=== PATIENT | male | born 1955 | race Caucasian/White ===

== ENCOUNTER 2020-07-04 16:37 | Emergency (ER) | payer OTHER ==
[~2020-07-04] VITALS: Ht 175.3 cm; Wt 129.3 kg
== END 2020-07-04 21:03 | disposition home or self-care (01) ==
LOC: ER 16:37
DX: Z00.00 Encounter for general adult medical examination without abnormal findings (principal); R69 Illness, unspecified; Z59.0 Homelessness
CPT/HCPCS: 99282

== ENCOUNTER 2020-07-05 12:48 | Emergency (ER) | payer OTHER ==
[~2020-07-05] VITALS: Ht 175.3 cm; Wt 111.6 kg
== END 2020-07-05 15:59 | disposition home or self-care (01) ==
LOC: ER 12:48
DX: M79.10 Myalgia, unspecified site (principal); G89.29 Other chronic pain
CPT/HCPCS: 96372; 99282-25; J1885

== ENCOUNTER 2020-07-09 08:12 | Observation (INO) | payer OTHER ==
[~2020-07-09] VITALS: Ht 175.3 cm; Wt 113.4 kg
[2020-07-09 09:11] LABS: BASOPHILS ABSOLUTE AUTO 0.04 K/mm3 (0.00-0.23); BASOPHILS PERCENT AUTO 1 % (0-2); EOSINOPHILS ABSOLUTE AUTO 0.12 K/mm3 (0.00-0.68); EOSINOPHILS PERCENT AUTO 2 % (0-6); Hematocrit 40.1 % (37.0-53.0); Hemoglobin 12.9 g/dL (13.5-17.5); IMMATURE GRAN ABSOLUTE AUTO 0.06 K/mm3 (0.00-0.10); IMMATURE GRAN PERCENT AUTO 1 % (0-1); LYMPHOCYTES ABSOLUTE AUTO 1.03 K/mm3 (0.84-5.20); LYMPHOCYTES PERCENT AUTO 17 % (21-46); MONOCYTES ABSOLUTE AUTO 0.85 K/mm3 (0.16-1.47); MONOCYTES PERCENT AUTO 14 % (4-13); Mean Corpuscular HGB 30.6 pg (26.0-34.0); Mean Corpuscular HGB Conc 32.2 g/dL (31.5-36.5); Mean Corpuscular Volume 95 fL (80-100); Mean Platelet Volume 10.6 fL (9.1-12.4); NEUTROPHILS ABSOLUTE AUTO 3.95 K/mm3 (1.96-9.15); NEUTROPHILS PERCENT AUTO 65 % (41-73); Platelet Count 194 K/mm3 (150-400); RDW Coefficient Variation 12.5 % (11.7-14.2); RDW Standard Deviation 42.9 fL (35.1-46.3); Red Blood Cell Count 4.21 M/mm3 (4.30-5.90); White Blood Cell Count 6.05 K/mm3 (4.00-11.30)
[2020-07-09 09:36] LABS: Alanine Aminotransfer (ALT/SGP 18 U/L (12-78); Albumin, Blood 3.2 g/dL (3.4-5.0); Albumin/Globulin Ratio 0.8 (0.8-1.8); Alk Phos 98 U/L (50-136); Anion Gap 5 mmol/L (6-16); Aspartate Aminotrans (AST/SGOT 11 U/L (12-37); Bilirubin, Total 0.5 mg/dL (0.1-1.0); Blood Urea Nitrogen 35 mg/dL (8-24); Bun/Creatinine Ratio 35.6 (12.0-20.0); CO2, Blood 29 mmol/L (21-32); Calcium, Blood 9.2 mg/dL (8.5-10.1); Chloride, Blood 109 mmol/L (98-108); Creatinine, Blood 0.98 mg/dL (0.60-1.20); Ethanol (Alcohol), Blood, Med <3 mg/dL; Globulin, Blood 3.8 g/dL (2.2-4.0); Glomerular Filtration Rate >60 (60-); Glucose, Blood 204 mg/dL (70-99); Potassium, Blood 4.7 mmol/L (3.5-5.5); Sodium, Blood 143 mmol/L (136-145); Troponin I <0.015 ng/mL (0.000-0.040)
[2020-07-09] MEDS ORDERED: AMOCLA875 PO (10:41)
[2020-07-09] MEDS ORDERED: ATOR80 PO (10:41)
[2020-07-09] MEDS ORDERED: CIPR750 PO (10:41)
[2020-07-09] MEDS ORDERED: Aspir 8181 MG PO (10:41)
[2020-07-09] MEDS ORDERED: CYAN1000I IM (10:42)
[2020-07-09] MEDS ORDERED: FURO20 PO (10:42)
[2020-07-09] MEDS ORDERED: LOSA50 PO (10:43)
[2020-07-09] MEDS ORDERED: BASAGLAR K100 UNIT/1 SC (10:43)
[2020-07-09] MEDS ORDERED: METO25ER PO (10:43)
[2020-07-09] MEDS ORDERED: NOVOLOG100 UNIT/3 (10:43)
[2020-07-09] MEDS ORDERED: METF500 PO (10:44)
[2020-07-09] MEDS ORDERED: TAMS.4ER PO (10:44)
[2020-07-09] MEDS ORDERED: PREG150 PO (10:44)
[2020-07-09] MEDS ORDERED: MULTI-VITAMIN1 EAC2 PO (10:44)
[2020-07-09] MEDS ORDERED: PYRI100 PO (10:45)
[2020-07-09] MEDS ORDERED: TRAZ50 PO (10:45)
[2020-07-09] MEDS ORDERED: OLAN5 PO (10:46)
[2020-07-09 17:57] LABS: U Amphetamine Screen Not Detected; U Barbituate Screen Not Detected; U Benzodiazapine Screen Not Detected; U Buprenorphine Screen Not Detected; U Cannabinoids Screen Not Detected; U Cocaine Screen Not Detected; U Methadone Screen Not Detected; U Methamphetamine Screen Not Detected; U Opiates Screen Not Detected; U Oxycodone Screen Not Detected; U Phencyclidine Screen Not Detected; U Propoxyphene Screen Not Detected
[2020-07-09 19:31] LABS: Influenza A, PCR Negative (NEGATIVE); Influenza B, PCR Negative (NEGATIVE); Resp Syncytial Virus, PCR Negative (NEGATIVE); SARS-Cov-2 (COVID-19) PCR, MMC Negative (NEGATIVE)
--- NOTE | 2020-07-09 20:16 | NUR ---
SHIFT SUMMARY- PT ALERT AND ORIENTED X4. NO S&S OF DISTRESS NOTED UPON ARRIVAL. PT STATED HE WAS HUNGRY AND BEGAN SNACKING. PT HAS DONE NOTHING BUT EAT SINCE ARRIVAL. SPOKE TO THE PT AND EXPLAINED THERE IS A LIMIT TO THE NUMBER OF SNACKS THAT CAN BE PROVDED AND HE HAS HAD ALOT. PT WAS UNDERSTANDING AND STATED E PLANS TO GO TO SLEEP AFTER HE FINISHED THE SUGAR FREE JELLO HE HAS NOW. PASSED ON TO CALCULATION REVIEWER IN REPORT. PT ON TELE AT THIS TIME. CALLED CONSULT TO FRONT MAKER LOCKSTITCH, PLAN IS FOR THE PT TO BE MONITORED OVERNIGHT FOR ANY CARDIAC EVENTS THAT MAY EXPLAIN HIS SYNCOPAL EPISODE HE HAD AN ABNORMAL EKG UPON ARRIVAL. PASSED ON TO NIGHT PRACHI KAPLAN IN BEDSIDE REPORT.
--- NOTE | 2020-07-09 22:50 | NUR ---
PATIENT HAVING INCREASED AGITATION. INAPROPRIATE YELLING. REFUSING ASSISTANCE. REPORTING HE DOES NOT WANT TO STAY TO MORNING TO SEE DOCTOR. CONFUSED.
--- NOTE | 2020-07-09 23:01 | NUR ---
PATIENT PULLED TELEMETRY LEADS OFF. REFUSING TO HAVE LEADS PUT BACK ON WITH INCREASED AGITATION. PUMP SERVICE SUPERVISOR NOTIFIED AND REPORTED LAST READING WAS NSR 66.
--- NOTE | 2020-07-09 23:30 | NUR ---
HOSPITALIST RALPH SCOTT ORDERED ZYPREXA 10 MG X ONE FOR AGITATION. REPORTED PATIENT HAS A RIGHT TO REFUSE TELEMETRY LEAD PLACEMENT. TELEMETRY ORDER STAYS CURRENT. ON SI PRECAUTIONS.
--- NOTE | 2020-07-10 02:04 | NUR ---
PATIENT REPORTED TO BE AGITATED BY PRODUCTION MACHINIST AND WANTING TO LEAVE AMA. PATIENT WALKED OUT INTO SANDOVAL, ON CAMERA, AND BROUGHT BACK INTO ROOM CONFUSED. PATIENT REMINDED OF INCLEMENT WEATHER OUTSIDE BY ANOTHER RN AND NEED TO SEE DR IN AM. PATIENT PROVIDED A SNACK AND RESTING IN CHAIR AT THIS TIME. RN REPORTS HE REFUSED HIS ZYPREXA 10 MG FOR THE THIRD TIME.
--- NOTE | 2020-07-10 02:31 | NUR ---
PATIENT BACK INTO BED AT THIS TIME. CALL LIGHT IN REACH.
--- NOTE | 2020-07-10 04:27 | NUR ---
SHIFT SUMMARY PATIENT HAD INCREASED AGITATION T/O SHIFT. AXOX 3 WITH CONFUSION REFUSING ASSISTANCE TO BR. SBA PROVIDED. MODERATE SUICIDE PRECAUTION. PATIENT REPORTED HE WANTED TO LEAVE AMA MULTIPLE TIMES. PULLED TELEMETRY OFF AND REFUSED REPLACEMENT OF LEADS. HOSPITALIST RALPH SCOTT NOTIFIED AND REPORTED PATIENT CAN REFUSE BUT TELEMETRY ORDERS IN PLACE. PATIENT INITIALLY REFUSED TO DO HEALTH HX BEFORE AGREEING. HAD INCREASED AGITATION WHEN TOLD HIS CBG WAS 183 AND REPORTED HE WANTED TO TAKE HIS OWN CBG. PATIENT REMINDED HE WAS IN HOSPITAL. REPORTED GENERAL PAIN AND TYLENOL GIVEN PER EMAR. COVERING NURSE AND TOOL SALVAGE WORKER REPORTED PATIENT OUT OF ROOM AND WANTED TO LEAVE. THEY OFFERED FOOD AND PATIENT BACK IN ROOM AND RESTED IN CHAIR BEFORE RETURNING TO BED ON HIS OWN. REFUSED ZYPREXA 10 MG X ONE ORDERED BY HOSPITALIST RALPH SCOTT THREE DIFFERENT TIMES. VSS/AFEBRILE. DENIES SOB AND N/V. CALL LIGHT IN REACH. BED IN LOWEST POSITION. WILL CONTINUE TO MONITOR UNTIL DAY SHIFT NURSE ASSUMES CARE.
--- NOTE | 2020-07-10 07:55 | NUR ---
UPON MORNING ASSESSMENT, OR ATTEMPT TO ASSESS, NURSE FOUND PT VERY AGITATED. HE REFUSED VITALS AND CBG'S CHECKS BUT PLANNING INTERN WAS FINALLY ABLE TO CONVINCE HIM TO HAVE THEM DONE. HE IS COMPLAINING THAT SOMEONE STOLE HIS SHOES. THIS NURSE CALLED DOWN TO ER TO SEE IF THEY HAD THEM AND WAS TOLD HE CAME IN FROM [facility] NO SHOES ON. THIS INFOMATION WAS GIVEN TO THE PATIENT WHO BECAME MORE AGIATED AND DISTRUSTING. THIS NURSE ATTEMPTED TO CALM THE PATIENT TELLING HIM HIS SHOES WERE WAITING FOR HIM BACK AT THE [place]. PT AT THIS TIME IS REFUSING MORNING MEDS, INCLUDING INSULIN. HE DOESNT BELIEVE THE READING TELLING THIS NURSE ITS DIFFERENT WITH WHO EVER TAKES IT. THIS NURSE EXPLAINED THE TRUTH BEHIND THE READING. WILL ATTEMPT TO TRY TO DELIVER MEDS AND INSULIN WITH BREAKFAST WHEN PT IS MORE COMPLIANT AND LESS PARANOID.
[2020-07-10] MEDS ORDERED: AMOCLA875 PO (12:07)
--- NOTE | 2020-07-10 14:49 | NUR ---
PT [facility] ON HALTER MONITOR WHICH HE REFUSED. PT ALSO REFUSED HIS 1130 INSULIN. PT IS GETTING AGITATED AND RESTLESS WAITING FOR HIS RIDE WHICH [facility] IS TO SET UP. STAFF USING CALMING AND REASSURING TONES AND COMMENTS.
--- NOTE | 2020-07-10 15:55 | NUR ---
1550 PT DISCHARGED BACK TO [facility]. PT WAS AGIATED AND THREATENING TO GO AMA. TRANSPORT ARRIVED, PAPERS SIGNED AND PT COBRA TRANSFERED BACK TO [facility].
== END 2020-07-10 15:50 ==
LOC: ER 08:12 → MEDS 08:13
PROVIDERS: Emergency Medicine; Nurse Practitioner Acute Care; ADMIT Internal Medicine
DX: I45.3 Trifascicular block (principal); I10 Essential (primary) hypertension; R45.851 Suicidal ideations; N40.0 Benign prostatic hyperplasia without lower urinary tract symptoms; E66.01 Morbid (severe) obesity due to excess calories; E11.40 Type 2 diabetes mellitus with diabetic neuropathy, unspecified; Z91.14 Patient's other noncompliance with medication regimen; Z89.421 Acquired absence of other right toe(s); Z79.82 Long term (current) use of aspirin; Z79.4 Long term (current) use of insulin; Z79.899 Other long term (current) drug therapy; Z23 Encounter for immunization; Z20.822 Contact with and (suspected) exposure to COVID-19; Z68.36 Body mass index [BMI] 36.0-36.9, adult
CPT/HCPCS: 0241U; 36415; 71045; 80053; 82947; 83605; 83735; 83880; 84484; 85025; 93005; 93010; A9270; A9270-GY; G0480; J7030

== ENCOUNTER 2020-07-29 06:19 | Emergency (ER) | payer OTHER ==
[~2020-07-29] VITALS: Ht 175.3 cm; Wt 111.6 kg
[~2020-07-29 06:19] MED LIST: AMOCLA875 PO; ATOR80 PO; Aspir 8181 MG PO; BASAGLAR K100 UNIT/1 SC; CIPR750 PO; CYAN1000I IM; FURO20 PO; LOSA50 PO; METF500 PO; METO25ER PO; MULTI-VITAMIN1 EAC2 PO; NOVOLOG100 UNIT/3; OLAN5 PO; PREG150 PO; PYRI100 PO; TAMS.4ER PO; TRAZ50 PO
[2020-07-29 08:04] LABS: BASOPHILS ABSOLUTE AUTO 0.03 K/mm3 (0.00-0.23); BASOPHILS PERCENT AUTO 0 % (0-2); EOSINOPHILS ABSOLUTE AUTO 0.11 K/mm3 (0.00-0.68); EOSINOPHILS PERCENT AUTO 1 % (0-6); Hemoglobin 12.1 g/dL (13.5-17.5); IMMATURE GRAN ABSOLUTE AUTO 0.03 K/mm3 (0.00-0.10); IMMATURE GRAN PERCENT AUTO 0 % (0-1); LYMPHOCYTES ABSOLUTE AUTO 0.89 K/mm3 (0.84-5.20); LYMPHOCYTES PERCENT AUTO 11 % (21-46); MONOCYTES ABSOLUTE AUTO 0.75 K/mm3 (0.16-1.47); MONOCYTES PERCENT AUTO 9 % (4-13); Mean Corpuscular HGB 32.1 pg (26.0-34.0); Mean Corpuscular HGB Conc 33.6 g/dL (31.5-36.5); Mean Corpuscular Volume 96 fL (80-100); NEUTROPHILS PERCENT AUTO 77 % (41-73); Platelet Count 145 K/mm3 (150-400); RDW Coefficient Variation 12.6 % (11.7-14.2); RDW Standard Deviation 44.1 fL (35.1-46.3); Red Blood Cell Count 3.77 M/mm3 (4.30-5.90); White Blood Cell Count 8.01 K/mm3 (4.00-11.30)
[2020-07-29 08:27] LABS: Alanine Aminotransfer (ALT/SGP 31 U/L (12-78); Albumin, Blood 3.8 g/dL (3.4-5.0); Albumin/Globulin Ratio 1.1 (0.8-1.8); Alk Phos 82 U/L (50-136); Anion Gap 5 mmol/L (6-16); Aspartate Aminotrans (AST/SGOT 15 U/L (12-37); Bilirubin, Total 0.4 mg/dL (0.1-1.0); Blood Urea Nitrogen 36 mg/dL (8-24); Bun/Creatinine Ratio 39.7 (12.0-20.0); CO2, Blood 29 mmol/L (21-32); Calcium, Blood 9.2 mg/dL (8.5-10.1); Chloride, Blood 107 mmol/L (98-108); Creatinine, Blood 0.91 mg/dL (0.60-1.20); Globulin, Blood 3.4 g/dL (2.2-4.0); Glomerular Filtration Rate >60 (60-); Glucose, Blood 115 mg/dL (70-99); Potassium, Blood 4.6 mmol/L (3.5-5.5); Sodium, Blood 141 mmol/L (136-145); Total Protein, Blood 7.2 g/dL (6.4-8.2); Troponin I <0.015 ng/mL (0.000-0.040)
[2020-07-29 09:57] LABS: Source, Urine Voided
[2020-07-29 10:00] LABS: Bilirubin, Urine Neg (Neg); Blood, Urine Neg (Neg); Glucose Qualitative, Urine Neg (Neg); Ketones, Urine Neg (Neg); Leukocyte Esterase, Urine Neg (Neg); Nitrite, Urine Neg (Neg); Protein, Urine Neg (Neg); Specific Gravity, Urine 1.015 (1.003-1.022); Urobilinogen, Urine NORM (Normal)
[2020-07-29 10:18] LABS: Appearance, Urine Clear (Clear); Color, Urine Yellow (P-Yellow)
== END 2020-07-29 10:39 | disposition home or self-care (01) ==
LOC: ER 06:19
PROVIDERS: Emergency Medicine
DX: I95.9 Hypotension, unspecified (principal); I10 Essential (primary) hypertension; E11.40 Type 2 diabetes mellitus with diabetic neuropathy, unspecified; Z79.4 Long term (current) use of insulin; Z79.899 Other long term (current) drug therapy
CPT/HCPCS: 36415; 71045; 80053; 81003; 83880; 84443; 84484; 85025; 93005; 93010; 99284-25; J2405; J7030

== ENCOUNTER → 2021-07-06 | Outpatient (CLI) | payer OTHER ==
[2021-07-06 19:11] LABS: BASOPHILS ABSOLUTE AUTO 0.05 K/mm3 (0.00-0.23); BASOPHILS PERCENT AUTO 1 % (0-2); EOSINOPHILS ABSOLUTE AUTO 0.15 K/mm3 (0.00-0.68); EOSINOPHILS PERCENT AUTO 2 % (0-6); Hematocrit 38.1 % (37.0-53.0); Hemoglobin 12.9 g/dL (13.5-17.5); IMMATURE GRAN ABSOLUTE AUTO 0.05 K/mm3 (0.00-0.10); IMMATURE GRAN PERCENT AUTO 1 % (0-1); LYMPHOCYTES ABSOLUTE AUTO 2.13 K/mm3 (0.84-5.20); LYMPHOCYTES PERCENT AUTO 22 % (21-46); MONOCYTES ABSOLUTE AUTO 0.79 K/mm3 (0.16-1.47); MONOCYTES PERCENT AUTO 8 % (4-13); Mean Corpuscular HGB 31.1 pg (26.0-34.0); Mean Corpuscular HGB Conc 33.9 g/dL (31.5-36.5); Mean Corpuscular Volume 92 fL (80-100); Mean Platelet Volume 10.9 fL (9.1-12.4); NEUTROPHILS ABSOLUTE AUTO 6.42 K/mm3 (1.96-9.15); NEUTROPHILS PERCENT AUTO 67 % (41-73); Platelet Count 183 K/mm3 (150-400); RDW Standard Deviation 40.3 fL (35.1-46.3); Red Blood Cell Count 4.15 M/mm3 (4.30-5.90); White Blood Cell Count 9.59 K/mm3 (4.00-11.30)
[2021-07-06 19:35] LABS: Alanine Aminotransfer (ALT/SGP 45 U/L (12-78); Albumin, Blood 3.9 g/dL (3.4-5.0); Albumin/Globulin Ratio 1.1 (0.8-1.8); Anion Gap 4 mmol/L (6-16); Aspartate Aminotrans (AST/SGOT 27 U/L (12-37); Bilirubin, Total 0.6 mg/dL (0.1-1.0); Blood Urea Nitrogen 25 mg/dL (8-24); Bun/Creatinine Ratio 27.7 (12.0-20.0); CHOL/HDL RATIO 2.3; CO2, Blood 29 mmol/L (21-32); Chloride, Blood 105 mmol/L (98-108); Cholesterol 108 mg/dL (50-200); Globulin, Blood 3.5 g/dL (2.2-4.0); Glomerular Filtration Rate >60 (60-); Glucose, Blood 258 mg/dL (70-99); HDL Cholesterol 46 mg/dL (>39); LDL/HDL RATIO 0.9; Low Density Lipoprotein Chol 43 mg/dL (0-110); Potassium, Blood 4.1 mmol/L (3.5-5.5); Prostate Specific Antigen 0.349 ng/mL (0.000-4.000); Sodium, Blood 138 mmol/L (136-145); Total Protein, Blood 7.4 g/dL (6.4-8.2); Triglycerides 93 mg/dL (30-160); Very Low Density Lipoprot Chol 18 mg/dL (6-32)
[2021-07-06 19:41] LABS: Alk Phos 111 U/L (50-136)
== END | disposition home or self-care (01) ==
LOC: LAB SHORT 12:47
PROVIDERS: Family Medicine
DX: Z12.5 Encounter for screening for malignant neoplasm of prostate (principal); E78.2 Mixed hyperlipidemia; E11.9 Type 2 diabetes mellitus without complications; I10 Essential (primary) hypertension
CPT/HCPCS: 80053; 80061; 83036; 85025; G0103

== ENCOUNTER → 2021-10-26 | Outpatient (CLI) | payer MEDICARE, OTHER ==
[2021-10-26 18:33] LABS: Source, Urine Clean Catch
[2021-10-26 18:56] LABS: Appearance, Urine Clear (Clear); Bilirubin, Urine Neg (Neg); Blood, Urine Neg (Neg); Color, Urine Yellow (P-Yellow); Glucose Qualitative, Urine 3+ (Neg); Ketones, Urine Neg (Neg); Leukocyte Esterase, Urine Neg (Neg); Nitrite, Urine Neg (Neg); Protein, Urine Neg (Neg); Specific Gravity, Urine 1.015 (1.003-1.022); Urobilinogen, Urine NORM (Normal)
== END | disposition home or self-care (01) ==
LOC: LAB SHORT 18:30
PROVIDERS: Family Medicine
DX: N39.0 Urinary tract infection, site not specified (principal)
CPT/HCPCS: 81003

== ENCOUNTER 2022-06-10 13:57 | Inpatient (IN) | payer MEDICARE, OTHER ==
[~2022-06-10] VITALS: Ht 167.6 cm; Wt 90.7 kg
[~2022-06-10 13:57] MED LIST changes: +AMLO5 PO; +CELE100 PO; +DIVA125 PO; +FAMO20 PO; +GABA100 PO; +GABA300 PO; +HALO2 PO; +HYDCHL25 PO; +LEVSOD25 PO; +MELA3 PO; +PRAZ2 PO; +Prozac40 MG PO; +QUET200 PO; +QUET25 PO
[2022-06-10 16:09] LABS: BASOPHILS ABSOLUTE AUTO 0.04 K/mm3 (0.00-0.23); BASOPHILS PERCENT AUTO 0 % (0-2); EOSINOPHILS ABSOLUTE AUTO 0.05 K/mm3 (0.00-0.68); EOSINOPHILS PERCENT AUTO 0 % (0-6); Hematocrit 38.2 % (37.0-53.0); Hemoglobin 13.4 g/dL (13.5-17.5); IMMATURE GRAN ABSOLUTE AUTO 0.07 K/mm3 (0.00-0.10); IMMATURE GRAN PERCENT AUTO 1 % (0-1); LYMPHOCYTES ABSOLUTE AUTO 1.76 K/mm3 (0.84-5.20); LYMPHOCYTES PERCENT AUTO 12 % (21-46); MONOCYTES ABSOLUTE AUTO 1.49 K/mm3 (0.16-1.47); MONOCYTES PERCENT AUTO 10 % (4-13); Mean Corpuscular HGB 31.2 pg (26.0-34.0); Mean Corpuscular HGB Conc 35.1 g/dL (31.5-36.5); Mean Corpuscular Volume 89 fL (80-100); Mean Platelet Volume 11.4 fL (9.1-12.4); NEUTROPHILS ABSOLUTE AUTO 11.75 K/mm3 (1.96-9.15); NEUTROPHILS PERCENT AUTO 78 % (41-73); Platelet Count 147 K/mm3 (150-400); RDW Coefficient Variation 11.9 % (11.7-14.2); Red Blood Cell Count 4.29 M/mm3 (4.30-5.90); White Blood Cell Count 15.16 K/mm3 (4.00-11.30)
[2022-06-10 16:20] LABS: Source, Urine Straight Cath
[2022-06-10 16:26] LABS: Albumin, Blood 3.7 g/dL (3.4-5.0); Albumin/Globulin Ratio 0.9 (0.8-1.8); Bilirubin, Total 0.8 mg/dL (0.1-1.0); Bun/Creatinine Ratio 15.4 (12.0-20.0); Calcium, Blood 9.1 mg/dL (8.5-10.1); Creatinine, Blood 0.98 mg/dL (0.60-1.20); Globulin, Blood 4.3 g/dL (2.2-4.0); Potassium, Blood 3.9 mmol/L (3.5-5.5)
[2022-06-10 16:42] LABS: Appearance, Urine Clear (Clear); Bilirubin, Urine Neg (Neg); Blood, Urine Neg (Neg); Color, Urine Yellow (P-Yellow); Glucose Qualitative, Urine 1+ (Neg); Ketones, Urine Neg (Neg); Leukocyte Esterase, Urine 2+ (Neg); Nitrite, Urine Neg (Neg); Protein, Urine Neg (Neg); Urobilinogen, Urine 1+ (Normal)
[2022-06-10 16:52] LABS: Red Blood Cells, Urine 0-2 /hpf (0-2); Squamous Epithelial Cells Not Seen /hpf (Few)
[2022-06-10 16:53] LABS: Bacteria Many /hpf
--- NOTE | 2022-06-11 05:20 | NUR ---
PATIENT ARRIVED FROM ED 2037. VITALS UNABLE TO BE OBTAINED DUE TO PATIENT NONCOMPLIANCE. DESPITE THIS, PATIENT IS GENERALLY COMPLIANT WITH CARE. 2100 MEDICATIONS GIVEN WITHOUT DIFFICULTY WHOLE IN APPLESAUCE. MORNING LAB DRAW COMPLETED WITHOUT DIFFICULTY. ADMISSION PROCESS UNABLE TO BE FULLY COMPLETED DUE TO PATIENT BEING AOX1 AND COMPLETELY CONFUSED. AOX2 AT BASELINE WITH ALTERED MENTAL STATUS FROM PRESENT UTI CONTRIBUTING TO MENTATION. CAME TO ED FROM SNF. HX OF DEMENTIA, DM, ETOH. BEDREST FOR TIME BEING. MOTTLING ON ALL 4 EXTREMITIES NOTED DURING EXAMINATION. PATIENT WAS SEEMINGLY HALLUCINATING AND WAS UNABLE TO GET MUCH SLEEP OVER THE COURSE OF THE NIGHT. 20 GA IN LEFT ARM, NS INFUSING WITHOUT DIFFICULTY. INCONTINENT IN BRIEF. ON ROOM AIR. CALL LIGHT LEFT WITHIN REACH.
[2022-06-11 06:51] LABS: BASOPHILS ABSOLUTE AUTO 0.03 K/mm3 (0.00-0.23); BASOPHILS PERCENT AUTO 0 % (0-2); EOSINOPHILS ABSOLUTE AUTO 0.08 K/mm3 (0.00-0.68); EOSINOPHILS PERCENT AUTO 1 % (0-6); Hematocrit 36.5 % (37.0-53.0); IMMATURE GRAN ABSOLUTE AUTO 0.03 K/mm3 (0.00-0.10); IMMATURE GRAN PERCENT AUTO 0 % (0-1); LYMPHOCYTES ABSOLUTE AUTO 2.05 K/mm3 (0.84-5.20); LYMPHOCYTES PERCENT AUTO 19 % (21-46); MONOCYTES ABSOLUTE AUTO 1.21 K/mm3 (0.16-1.47); MONOCYTES PERCENT AUTO 11 % (4-13); Mean Corpuscular HGB 31.5 pg (26.0-34.0); Mean Corpuscular HGB Conc 35.6 g/dL (31.5-36.5); Mean Corpuscular Volume 88 fL (80-100); Mean Platelet Volume 11.3 fL (9.1-12.4); NEUTROPHILS ABSOLUTE AUTO 7.21 K/mm3 (1.96-9.15); NEUTROPHILS PERCENT AUTO 68 % (41-73); Platelet Count 151 K/mm3 (150-400); RDW Coefficient Variation 11.8 % (11.7-14.2); RDW Standard Deviation 37.8 fL (35.1-46.3); Red Blood Cell Count 4.13 M/mm3 (4.30-5.90); White Blood Cell Count 10.61 K/mm3 (4.00-11.30)
[2022-06-11 07:13] LABS: Bun/Creatinine Ratio 19.7 (12.0-20.0); Calcium, Blood 8.9 mg/dL (8.5-10.1); Creatinine, Blood 0.71 mg/dL (0.60-1.20); Potassium, Blood 3.9 mmol/L (3.5-5.5)
--- NOTE | 2022-06-11 15:56 | NUR ---
SHIFT SUMMARY PATIENT IS ALERT AND ORIENTED TO SELF. PATIENT REMAINS EXTREMELY CONFUSED AND SHOUTS WORDS OUT ARE INCOMPREHENSIVABLE. PATIENT HAS HAD NO ACUTE EVENTS THIS SHIFT. MORNING VITALS ARE REVIEWED. AFTERNOON VITALS WERE REFUSED BY PATIENT. PATIENT HAS BEEN AGRESSIVE AT TIMES. PATIENT HAS NOT COMPLAINED OF PAIN, NAUSEA, SOB OR VOMITTING THIS SHIFT. BED IN LOCKED AND LOWEST POSITION. BED ALARM IS ON. CALL LIGHT IN PLACE. WILL MONITOR UNTIL SHIFT CHANGE.
--- NOTE | 2022-06-12 04:29 | NUR ---
SHIFT MOSTLY UNREMARKABLE. PATIENT SLEPT THROUGH MOST OF SHIFT AFTER 2100 SEROQUEL ADMINISTRATION. PATIENT WAS PLEASANT AND COOPERATIVE WITH CARE FOR ASSESSMENT, MEDICATION ADMINISTRATION, AND CBG CHECK. LATER IN THE SHIFT DURING PIPE FITTER MARINE HOURS PATIENT SEEMED MILDLY MORE AGITATED BUT HAS NOT ATTEMPTED TO LEAVE BED. PATIENT WAS MUTTERING TO HIMSELF IN IRRITATED TONE OF VOICE BUT FELL BACK ASLEEP THEREAFTER. NIGHTTIME VITALS SHOWED ELEVATED BP FROM VITALS CART MEASUREMENT. MANUAL BP MEASUREMENT WAS WNL. PATIENT ASYMPOMTATIC. CALL LIGHT LEFT WITHIN REACH.
[2022-06-12] MEDS ORDERED: ACET325 PO (14:34)
[2022-06-12] MEDS ORDERED: BISA10S PR (14:35)
[2022-06-12] MEDS ORDERED: Haloperidol2 MG PO (14:40)
[2022-06-12] MEDS ORDERED: TRIPLE ANTIBIOT28 GM TOP (14:41)
[2022-06-12] MEDS ORDERED: ATOR40TA PO (14:43)
--- NOTE | 2022-06-12 17:42 | NUR ---
SHIFT SUMMARY NO ACUTE CHANGES. PT ORIENTED TO SELF ONLY. COOPERATIVE OF CARE TODAY. PT BECOME RESTLESS IN AFTERNOON BUT HAD DIFFICULTY VERBAILIZING NEEDS. PT'S FLACC SCALE WAS 5. MEDICATED PER EMAR AND UPON REASSESMENT, PT APPEARED MORE RELAXED AND CALM. PLAN IS FOR PT TO DISCHARGE BACK TO [facility] TOMORROW. BED IN LOWEST POSITION AND CALL LIGHT IN REACH.
--- NOTE | 2022-06-13 05:19 | NUR ---
SHIFT SUMMARY PATIENT IS ALERT AND ORIENTED TO SELF ONLY. PATIENT HAS BEEN UNCOOPERATIVE WITH CARE AND RESISTING CHANGING AND TURNING PATIENT. PATIENT IN COMPREHENSIBLE THIS SHIFT. PATIENT EVENTUALLY TOOK MEDICATIONS IN APPLESAUCE WITH EXTREME COAXING. PATIENT HAS NOT COMPLAINED OF PAIN, NAUSEA, SOB OR VOMITTING THIS SHIFT. WILL MONITOR UNTIL SHIFT CHANGE.
[2022-06-13] MEDS ORDERED: BASAGLAR K100 UNIT/1 SC (13:13)
[2022-06-13] MEDS ORDERED: INSULIN LI100 UNIT/6 SC (13:16)
[2022-06-13] MEDS ORDERED: SULTRIDS PO (13:17)
--- NOTE | 2022-06-13 13:57 | NUR ---
THIS RN PROVIDED PT REPORT TO LISA VELARDE @ [facility] @ THIS TIME.
--- NOTE | 2022-06-13 15:36 | NUR ---
DISCHARGE PT REPORT CALLED INTO [facility] RN. TRANSPORT VIA [facility]. BRIEF CHANGED AND IV DCED JUST PRIOR TO TRANSPORT. REFUSING FOOD, FEEDER ASSIST OFFERED-REPORTED TO NEXT RN. MEDS FAXED.
== END 2022-06-13 15:26 | disposition home or self-care (01) | DRG 871 ==
LOC: ER 13:57 → MEDS 20:22
PROVIDERS: Nurse Practitioner Acute Care; Student in an Organized Health Care Education/Training Program; ADMIT Hospitalist
DX: A41.01 Sepsis due to Methicillin susceptible Staphylococcus aureus (principal); G92.8 Other toxic encephalopathy; N39.0 Urinary tract infection, site not specified; F03.90 Unspecified dementia, unspecified severity, without behavioral disturbance, psychotic disturbance, mood disturbance, and anxiety; E11.40 Type 2 diabetes mellitus with diabetic neuropathy, unspecified; F10.20 Alcohol dependence, uncomplicated; F32.A Depression, unspecified; E03.9 Hypothyroidism, unspecified; N40.0 Benign prostatic hyperplasia without lower urinary tract symptoms; F20.9 Schizophrenia, unspecified; E66.01 Morbid (severe) obesity due to excess calories; D63.8 Anemia in other chronic diseases classified elsewhere; Z68.32 Body mass index [BMI] 32.0-32.9, adult; Z28.21 Immunization not carried out because of patient refusal; Z88.5 Allergy status to narcotic agent; Z88.6 Allergy status to analgesic agent; Z88.8 Allergy status to other drugs, medicaments and biological substances; Z79.4 Long term (current) use of insulin; Z79.899 Other long term (current) drug therapy
CPT/HCPCS: 36415; 70450; 71046; 80048; 80053; 81001; 82947; 83036; 85025; 87077; 87086; 87186; 93005; 93010; 96374; 99285-25; A9270; J0690; J0696; J1650; J1815; J7030

== ENCOUNTER → 2022-06-23 | Outpatient (CLI) | payer MEDICARE, OTHER ==
[~2022-06-23] MED LIST changes: +ACET325 PO; +ATOR40TA PO; +BISA10S PR; +Haloperidol2 MG PO; +INSULIN LI100 UNIT/6 SC; +SULTRIDS PO; +TRIPLE ANTIBIOT28 GM TOP
[2022-06-23 09:50] LABS: Thyroxine (T4) 2.9 ug/dL (4.5-12.1)
[2022-06-23 09:59] LABS: Thyroid Stimulating Hormone 2.19 uIU/mL (0.360-4.800); Triiodothyronine, Free 1.83 pg/mL (2.18-3.98)
== END ==
LOC: LAB SHORT 06:27
PROVIDERS: Family Medicine
DX: E03.9 Hypothyroidism, unspecified (principal); E11.43 Type 2 diabetes mellitus with diabetic autonomic (poly)neuropathy
CPT/HCPCS: 36415; 83036; 84436; 84443; 84481

== ENCOUNTER → 2022-08-10 | Outpatient (CLI) | payer MEDICARE, OTHER ==
[2022-08-10 18:22] LABS: Source, Urine Clean Catch
[2022-08-10 19:19] LABS: Bilirubin, Urine Neg (Neg); Blood, Urine 1+ (Neg); Color, Urine Yellow (P-Yellow); Glucose Qualitative, Urine Neg (Neg); Ketones, Urine Neg (Neg); Leukocyte Esterase, Urine 3+ (Neg); Nitrite, Urine Pos (Neg); Protein, Urine 1+ (Neg); Specific Gravity, Urine 1.015 (1.003-1.022); Urobilinogen, Urine NORM (Normal)
[2022-08-10 19:26] LABS: Appearance, Urine Hazy (Clear); White Blood Cells, Urine 50-100 /hpf (0-5)
[2022-08-10 19:27] LABS: Amorphous Light (0-Heavy); Bacteria Many /hpf; Hyaline Casts 0-2 /lpf (0-2); Mucus Light (0-Heavy); Red Blood Cells, Urine 0-2 /hpf (0-2); Squamous Epithelial Cells Rare /hpf (Few)
== END | disposition home or self-care (01) ==
LOC: LAB SHORT 18:21
PROVIDERS: Family Medicine
DX: N39.0 Urinary tract infection, site not specified (principal)
CPT/HCPCS: 81001; 87077; 87086; 87186

== ENCOUNTER 2022-09-29 19:48 | Emergency (ER) | payer MEDICARE, OTHER ==
[~2022-09-29] VITALS: Ht 175.3 cm; Wt 111.1 kg
== END 2022-09-30 04:46 | disposition home or self-care (01) ==
LOC: ER 19:48
DX: S70.01XA Contusion of right hip, initial encounter (principal); S39.012A Strain of muscle, fascia and tendon of lower back, initial encounter; W18.30XA Fall on same level, unspecified, initial encounter; E78.5 Hyperlipidemia, unspecified; I10 Essential (primary) hypertension; E03.9 Hypothyroidism, unspecified; E11.40 Type 2 diabetes mellitus with diabetic neuropathy, unspecified; Z88.8 Allergy status to other drugs, medicaments and biological substances; Z88.5 Allergy status to narcotic agent; Z79.899 Other long term (current) drug therapy; Z79.4 Long term (current) use of insulin
CPT/HCPCS: 72100; 72192; 73502; 99285-25

== ENCOUNTER → 2022-09-29 | Outpatient (CLI) | payer MEDICARE, OTHER ==
[2022-09-29 19:51] LABS: Source, Urine Clean Catch
[2022-09-29 20:27] LABS: Bilirubin, Urine Neg (Neg); Blood, Urine Neg (Neg); Glucose Qualitative, Urine Neg (Neg); Ketones, Urine Neg (Neg); Leukocyte Esterase, Urine Neg (Neg); Nitrite, Urine Neg (Neg); Protein, Urine Neg (Neg); Urobilinogen, Urine NORM (Normal)
[2022-09-29 20:55] LABS: Appearance, Urine Clear (Clear); Color, Urine Yellow (P-Yellow)
[2022-09-29 20:56] LABS: Amorphous Light (0-Heavy); Bacteria Not Seen /hpf; Mucus Light (0-Heavy); Red Blood Cells, Urine Not Seen /hpf (0-2); Squamous Epithelial Cells Not Seen /hpf (Few); White Blood Cells, Urine Not Seen /hpf (0-5)
== END | disposition home or self-care (01) ==
LOC: LAB SHORT 14:45 → LAB 14:45
PROVIDERS: Family Medicine
DX: N39.0 Urinary tract infection, site not specified (principal)
CPT/HCPCS: 81001; 81003

== ENCOUNTER → 2023-01-01 | Outpatient (CLI) | payer MEDICARE, OTHER ==
[2023-01-01 19:04] LABS: Source, Urine Clean Catch
[2023-01-01 19:56] LABS: Appearance, Urine Clear (Clear); Bilirubin, Urine Neg (Neg); Blood, Urine Neg (Neg); Color, Urine Yellow (P-Yellow); Glucose Qualitative, Urine Neg (Neg); Ketones, Urine Neg (Neg); Leukocyte Esterase, Urine Neg (Neg); Nitrite, Urine Neg (Neg); Protein, Urine Neg (Neg); Specific Gravity, Urine 1.015 (1.003-1.022); Urobilinogen, Urine NORM (Normal)
== END | disposition home or self-care (01) ==
LOC: LAB SHORT 19:02 → LAB 19:02
PROVIDERS: Registered Nurse
DX: N39.0 Urinary tract infection, site not specified (principal)
CPT/HCPCS: 81003

== ENCOUNTER 2023-04-20 12:49 | Inpatient (IN) | payer MEDICARE, OTHER ==
[~2023-04-20] VITALS: Ht 177.8 cm; Wt 106.7 kg
[~2023-04-20 12:49] MED LIST changes: +LOSARTAN POTAS100 M1 PO
[2023-04-20 13:33] LABS: BASOPHILS ABSOLUTE AUTO 0.03 K/mm3 (0.00-0.23); BASOPHILS PERCENT AUTO 0 % (0-2); EOSINOPHILS ABSOLUTE AUTO 0.03 K/mm3 (0.00-0.68); EOSINOPHILS PERCENT AUTO 0 % (0-6); Hematocrit 32.6 % (37.0-53.0); Hemoglobin 11.4 g/dL (13.5-17.5); IMMATURE GRAN ABSOLUTE AUTO 0.06 K/mm3 (0.00-0.10); IMMATURE GRAN PERCENT AUTO 1 % (0-1); LYMPHOCYTES ABSOLUTE AUTO 0.91 K/mm3 (0.84-5.20); LYMPHOCYTES PERCENT AUTO 9 % (21-46); MONOCYTES ABSOLUTE AUTO 0.89 K/mm3 (0.16-1.47); MONOCYTES PERCENT AUTO 9 % (4-13); Mean Corpuscular HGB 32.1 pg (26.0-34.0); Mean Corpuscular Volume 92 fL (80-100); Mean Platelet Volume 11.3 fL (9.1-12.4); NEUTROPHILS PERCENT AUTO 81 % (41-73); Platelet Count 160 K/mm3 (150-400); RDW Coefficient Variation 12.3 % (11.7-14.2); RDW Standard Deviation 41.2 fL (35.1-46.3); Red Blood Cell Count 3.55 M/mm3 (4.30-5.90); White Blood Cell Count 10.32 K/mm3 (4.00-11.30)
[2023-04-20 14:03] LABS: International Normalized Ratio 1.11; Prothrombin Time Results 11.6 Sec (9.7-11.5)
[2023-04-20 14:05] LABS: Salicylate <1.7 mg/dL (2.8-20.0)
[2023-04-20 14:09] LABS: Alanine Aminotransfer (ALT/SGP 28 U/L (12-78); Albumin, Blood 3.2 g/dL (3.4-5.0); Albumin/Globulin Ratio 0.9 (0.8-1.8); Alk Phos 56 U/L (50-136); Anion Gap 1 mmol/L (6-16); Aspartate Aminotrans (AST/SGOT 55 U/L (12-37); Bilirubin, Total 0.4 mg/dL (0.1-1.0); Blood Urea Nitrogen 20 mg/dL (8-24); Bun/Creatinine Ratio 15.5 (12.0-20.0); CO2, Blood 31 mmol/L (21-32); Calcium, Blood 8.3 mg/dL (8.5-10.1); Chloride, Blood 111 mmol/L (98-108); Creatinine, Blood 1.29 mg/dL (0.60-1.20); Globulin, Blood 3.5 g/dL (2.2-4.0); Glomerular Filtration Rate 60 (60-); Glucose, Blood 85 mg/dL (70-99); Magnesium, Blood 2.2 mg/dL (1.6-2.4); Phosphorus, Blood 2.8 mg/dL (2.5-4.9); Potassium, Blood 4.9 mmol/L (3.5-5.5); Sodium, Blood 143 mmol/L (136-145); Total Protein, Blood 6.7 g/dL (6.4-8.2)
[2023-04-20 14:10] LABS: Acetaminophen, Random <2.0 ug/mL (10.0-30.0)
[2023-04-20 14:17] LABS: Source, Urine Straight Cath
[2023-04-20 14:44] LABS: Appearance, Urine Clear (Clear); Bilirubin, Urine Neg (Neg); Blood, Urine Neg (Neg); Color, Urine Yellow (P-Yellow); Glucose Qualitative, Urine Neg (Neg); Ketones, Urine Neg (Neg); Leukocyte Esterase, Urine Neg (Neg); Nitrite, Urine Neg (Neg); Protein, Urine Neg (Neg); Urobilinogen, Urine NORM (Normal)
[2023-04-20 15:03] LABS: Influenza A, PCR NEGATIVE (NEGATIVE); Influenza B, PCR NEGATIVE (NEGATIVE); Resp Syncytial Virus, PCR NEGATIVE (NEGATIVE); SARS-Cov-2 (COVID-19) PCR, MMC NEGATIVE (NEGATIVE)
[2023-04-20 15:05] LABS: U Amphetamine Screen Not Detected; U Barbituate Screen Not Detected; U Benzodiazapine Screen DETECTED; U Buprenorphine Screen Not Detected; U Cannabinoids Screen Not Detected; U Cocaine Screen Not Detected; U Methadone Screen Not Detected; U Methamphetamine Screen Not Detected; U Opiates Screen Not Detected; U Oxycodone Screen Not Detected; U Phencyclidine Screen Not Detected; U Propoxyphene Screen Not Detected
[2023-04-20] MEDS ORDERED: GUAI600T33 PO (16:44)
[2023-04-20] MEDS ORDERED: MOBIC15 MG PO (16:47)
[2023-04-20] MEDS ORDERED: ONGLYZA5 MG PO (16:48)
[2023-04-20 18:07] LABS: Valproic Acid 31.5 ug/mL (50.0-100.0)
[2023-04-20 20:53] VITALS: BP 149/77
[2023-04-21 00:51] VITALS: BP 144/79
--- NOTE | 2023-04-21 03:15 | NUR ---
ADMISSION DONE. PT WANT ABLE TO ANSWER ANY SIGNIFICANT QUESTIONS ABOUT HEALTH HISTORY. ADMISSION WAS DONE BEST COULD BE DONE. TELE CONNECTED ASSESSMENT DONE, PT COOPERATIVE. FSBS IN MID 50'S PT ASYMPTOMATIC BUT OJ AND CHEESE WAS GIVEN. HOUR LATER FSBS WAS THE SAME, IN THE MID 50'S. WAS NOTIFIED AND IV FLUIDS WERE CHANGED . FSBS IS NOW 97 PT SLEEPING.
[2023-04-21 05:08] VITALS: BP 130/75
[2023-04-21 06:24] LABS: BASOPHILS ABSOLUTE AUTO 0.03 K/mm3 (0.00-0.23); BASOPHILS PERCENT AUTO 0 % (0-2); EOSINOPHILS ABSOLUTE AUTO 0.09 K/mm3 (0.00-0.68); EOSINOPHILS PERCENT AUTO 1 % (0-6); Hematocrit 34.5 % (37.0-53.0); Hemoglobin 11.8 g/dL (13.5-17.5); IMMATURE GRAN ABSOLUTE AUTO 0.02 K/mm3 (0.00-0.10); IMMATURE GRAN PERCENT AUTO 0 % (0-1); LYMPHOCYTES PERCENT AUTO 32 % (21-46); MONOCYTES ABSOLUTE AUTO 0.82 K/mm3 (0.16-1.47); MONOCYTES PERCENT AUTO 12 % (4-13); Mean Corpuscular HGB 31.6 pg (26.0-34.0); Mean Corpuscular HGB Conc 34.2 g/dL (31.5-36.5); Mean Corpuscular Volume 92 fL (80-100); Mean Platelet Volume 10.5 fL (9.1-12.4); NEUTROPHILS ABSOLUTE AUTO 3.66 K/mm3 (1.96-9.15); NEUTROPHILS PERCENT AUTO 54 % (41-73); Platelet Count 150 K/mm3 (150-400); RDW Coefficient Variation 12.2 % (11.7-14.2); Red Blood Cell Count 3.74 M/mm3 (4.30-5.90); White Blood Cell Count 6.82 K/mm3 (4.00-11.30)
[2023-04-21 06:46] LABS: Anion Gap 3 mmol/L (6-16); Blood Urea Nitrogen 16 mg/dL (8-24); Bun/Creatinine Ratio 16.7 (12.0-20.0); CHOL/HDL RATIO 1.7; CO2, Blood 30 mmol/L (21-32); Calcium, Blood 8.7 mg/dL (8.5-10.1); Chloride, Blood 111 mmol/L (98-108); Cholesterol 75 mg/dL (50-200); Creatinine, Blood 0.96 mg/dL (0.60-1.20); Glomerular Filtration Rate 86 (60-); Glucose, Blood 98 mg/dL (70-99); HDL Cholesterol 44 mg/dL (>39); LDL/HDL RATIO 0.3; Low Density Lipoprotein Chol 15 mg/dL (0-110); Potassium, Blood 3.9 mmol/L (3.5-5.5); Sodium, Blood 144 mmol/L (136-145); Triglycerides 80 mg/dL (30-160); Very Low Density Lipoprot Chol 16 mg/dL (6-32)
--- NOTE | 2023-04-21 07:10 | NUR ---
CALL FROM PCU, PT IN VENTRICULAR TRIGEM. VSS BP WNL PT STATING HE FEELS FINE, NOT EXCELLENT BY FINE.
[2023-04-21 08:10] VITALS: BP 132/95
--- NOTE | 2023-04-21 12:00 | NUR ---
PT BEING COMBATIVE DURING HYGIENE CARE, HITTING CAREER GUIDANCE TECHNICIAN'S TEAMING UP TO CLEAN PT OF BM & URINE. PT IS INCONTINENT OF BOTH. PT IS QUITE RESISTANT TO ALL ATTEMPTS TO CLEAN HIM UP. PT IS REFUSING TO WEAR TELE MONITOR, WILL NOT ALLOW STAFF TO REPLACE ELECTRODES OR PUT TELE BACK ON. TRUCK CATERER NOTIFIED. WILL ATTEMPT AT A LATER TIME.
--- NOTE | 2023-04-21 19:41 | NUR ---
SHIFT SUMMARY A&O X 1-2, VSS. THIS SHIFT PT HAS BEEN RESISTANT TO ALL CARE, BECOMING COMBATIVE WITH ATTEMPTS TO PROVIDE HYGIENE CARE, IS INCONTINENT OF URINE & STOOL. PT STRIKES OUT AT STAFF AND ATTEMPTS TO GRAB ARMS & HANDS. SCOOTS SELF TO EDGE OF BED OR FOOT OF BED AND TRIES TO GET OOB. PT IS UNABLE TO STAND, AT BASELINE IS W/C BOUND. IS COGNITIVELY UNABLE TO FOLLOW DIRECTIONS AND IS NOT RE-DIRECTABLE. PLACED CALL TO MD, RECIEVED ORDERS TO PLACE PT IN SAFETY VEST & TO DC TELE. PT DOES REQUIRE ASSISTANCE TO EAT. PLAN IS FOR RETURN TO [facility] UPON DC.
--- NOTE | 2023-04-21 21:44 | NUR ---
PT RESTING IN BED, PT HAD REFUSED VITALS AND CBG TO BE DONE FROM PIPELINE ENGINEER. CAME IN WITH PTS MEDS SLOWLY EXSPLANED WHAT MEDS I HAD AND WHAT EACH MED WAS FOR DID THIS SEVRAL TIMES . PT REFUSED MEDS. ASKED PT IF I COULD LISTEN TO LUNGA HEART AND ABD. PT DID NOT ANSWER YES OR NOW LISTED TO HEART THEN ABD WHEN TRYING TO LISTEN TO LUNGS PT BECOMING COMBATIVE TRYING TO HIT. COVRED PT WITH BLANKET AND MADE SURE PT SAFE AND VLAD WAS OK. CALL LIGHT IN REACH BED ALARM ON.
[2023-04-21] MEDS ORDERED: [UNRECOGNIZED DRUG - OTHER] PO (22:51)
[2023-04-21] MEDS ORDERED: ANTI PO (22:51)
[2023-04-21] MEDS ORDERED: MIRALAX17 GM PO (22:53)
[2023-04-21] MEDS ORDERED: NYAMYC15 G1 TOP (22:58)
[2023-04-21] MEDS ORDERED: ALMACONE SUSPE355 ML PO (23:02)
[2023-04-21] MEDS ORDERED: Fleet Enema132 ML PR (23:03)
[2023-04-21] MEDS ORDERED: GABA100 PO (23:04)
[2023-04-21] MEDS ORDERED: KETO15TC TOP (23:05)
[2023-04-21] MEDS ORDERED: DULCOLAX400 MG/5 M PO (23:06)
[2023-04-21] MEDS ORDERED: LOPE2C PO (23:06)
[2023-04-21] MEDS ORDERED: QUET25 PO (23:09)
--- NOTE | 2023-04-22 02:43 | NUR ---
SHIFT SUMMERY, PT AWAKE AND HAS APPEARED TO BE AWAKE ALL NIGHT. PT NOT WANTING TO BE BOTHRED NOT WANTING CARES AND REFUSING CARES AND MEDS AND VITALS/ CALL LIGHT IN REACH BED ALARM ON.
[2023-04-22 08:17] VITALS: BP 149/100
[2023-04-22 13:14] LABS: Hematocrit 37.9 % (37.0-53.0); Mean Corpuscular HGB 31.1 pg (26.0-34.0); Mean Corpuscular HGB Conc 34.3 g/dL (31.5-36.5); Mean Corpuscular Volume 91 fL (80-100); Mean Platelet Volume 10.5 fL (9.1-12.4); Platelet Count 165 K/mm3 (150-400); RDW Coefficient Variation 11.9 % (11.7-14.2); RDW Standard Deviation 39.2 fL (35.1-46.3); Red Blood Cell Count 4.18 M/mm3 (4.30-5.90); White Blood Cell Count 7.24 K/mm3 (4.00-11.30)
[2023-04-22 13:43] LABS: Albumin, Blood 3.7 g/dL (3.4-5.0); Anion Gap 6 mmol/L (6-16); Blood Urea Nitrogen 16 mg/dL (8-24); Bun/Creatinine Ratio 17.2 (12.0-20.0); CO2, Blood 25 mmol/L (21-32); Calcium, Blood 9.2 mg/dL (8.5-10.1); Chloride, Blood 107 mmol/L (98-108); Creatinine, Blood 0.93 mg/dL (0.60-1.20); Glomerular Filtration Rate 89 (60-); Glucose, Blood 216 mg/dL (70-99); Phosphorus, Blood 3.2 mg/dL (2.5-4.9); Sodium, Blood 138 mmol/L (136-145)
[2023-04-22 17:06] VITALS: BP 143/86
--- NOTE | 2023-04-22 18:26 | NUR ---
SHIFT SUMMARY PT AxOx2 WITH FREQUENT CONFUSION AND DIFFICULTY COMMUNICATING NEEDS. PT IS BED/WC BOUND AT BASELINE, CURRENTLY LIVING AT AN ASSISTED LIVING FACILITY. PT REPORTS GENERAL PAIN AND WAS MEDICATED x2 THIS SHIFT. PT WAS COMPLIANT WITH MEDS THIS SHIFT AND SEEMS TO TAKE THEM BEST WHEN CRUSHED IN PUDDING. PT DOES BECOME AGITATED WITH ATTENDS CHANGES AND WILL SOMETIMES SWING HIS LIMBS. CALMING REASSURANCE/ THERAPEUTIC COMMUNICATION HELPS. VLAD MARIA'Annamarie THIS AM. CONDOM CATH FITTED THIS SHIFT WITH SUCCESS. PT IS CURRENTLY RESTING IN BED LISTENING TO MUSIC. DENIES ANY NEEDS AT THIS TIME.
[2023-04-22 21:26] VITALS: BP 140/80
[2023-04-23 04:38] VITALS: BP 147/52
--- NOTE | 2023-04-23 07:30 | NUR ---
ASSUMED CARE: PT RESTING QUIETLY AT THIS TIME. NO ACUTE NEEDS OR CONCERNS IDENTIFIED.
[2023-04-23 08:04] VITALS: BP 142/79
--- NOTE | 2023-04-23 08:45 | NUR ---
SUMMARY: PT A/OX1-2 AND HE HAS DELAYED RESPONSES W/SLOW SPEECH BUT IS ABLE TO ANSWER SOME Q'S APPROPRIATELY AND SPECIFY NEEDS. HE REMAINS ON BEDREST AND IS W/C BOUND AT BASELINE. PT HAS RIGID EXT'S, CONTRACTED HANDS AND LEGS AND REQ'S FEEDER ASSIST. TURN SCHEDULE WAS MAINTAINED AND CONDOM CATH IS IN PLACE FOR INCONTINENCE AND SBD PREVENTION. LR INFUSES AT 100 ML/HR AND MEDS RECIEVED CRUSHED IN PUDDING. NO ACUTE CHANGES, VSS/AFEBRILE. WCTM AND REPORT TO DAY RN.
--- NOTE | 2023-04-23 11:10 | NUR ---
DR JACKSON CALLED TO SPEAK WITH THIS RN REGARDING MENTATION. PT REQUIRED ROUSING FOR SEVERAL MINUTES PRIOR TO BEING ABLE TO TAKE MEDICATIONS. CALL TO [facility] STAFF AND THEY RELAY PT GOES THROUGH PERIODS OF DROWSINESS AND DIFFICULTY ROUSING AND THEN DAYS WHERE HE IS VERY AGITATED.
[2023-04-23 16:41] VITALS: BP 166/93
--- NOTE | 2023-04-23 18:31 | NUR ---
SHIFT SUMMARY: PT HAS BEEN SLEEPY ALL SHIFT BUT WAKES FOR CARE. DR JACKSON MADE MEDICATION CHANGES DUE TO THIS. [facility] STATES THAT THIS IS PT'S BASELINE AND THAT SOME DAYS HE SLEEPS ALL DAY AND OTHER DAYS HE'S VERY AGITATED. NO ACUTE NEEDS OR CONCERNS AT THIS TIME.
[2023-04-23 21:02] VITALS: BP 159/97
[2023-04-24 03:48] VITALS: BP 152/84
--- NOTE | 2023-04-24 04:17 | NUR ---
SLEPT ALL NIGHT. PILLS CRUSHED IN PUDDING. NO C/O PAIN. CONDOM CATH IN PLACE.
[2023-04-24 07:59] VITALS: BP 146/80
[2023-04-24 08:38] LABS: Hemoglobin 13.3 g/dL (13.5-17.5); Mean Corpuscular HGB 31.6 pg (26.0-34.0); Mean Corpuscular Volume 90 fL (80-100); Mean Platelet Volume 10.2 fL (9.1-12.4); Platelet Count 167 K/mm3 (150-400); RDW Standard Deviation 39.2 fL (35.1-46.3); Red Blood Cell Count 4.21 M/mm3 (4.30-5.90); White Blood Cell Count 6.46 K/mm3 (4.00-11.30)
[2023-04-24 08:55] LABS: Albumin, Blood 3.6 g/dL (3.4-5.0); Anion Gap 4 mmol/L (6-16); Blood Urea Nitrogen 16 mg/dL (8-24); Bun/Creatinine Ratio 15.8 (12.0-20.0); CO2, Blood 29 mmol/L (21-32); Calcium, Blood 8.7 mg/dL (8.5-10.1); Chloride, Blood 111 mmol/L (98-108); Creatinine, Blood 1.01 mg/dL (0.60-1.20); Glomerular Filtration Rate 81 (60-); Glucose, Blood 140 mg/dL (70-99); Phosphorus, Blood 2.8 mg/dL (2.5-4.9); Potassium, Blood 3.7 mmol/L (3.5-5.5); Sodium, Blood 144 mmol/L (136-145)
[2023-04-24 15:37] VITALS: BP 142/86
--- NOTE | 2023-04-24 17:17 | NUR ---
DISCHARGE PT DISCHARGED AT 1711. DC ORDERS AND MEDS SENT IN PACKET TO [facility] FOR DC INSTRUCTIONS. CALL MADE TO GIVE REPORT, BUT WAS UNABLE TO GET AHOLD OF A NURSE. PT TRANSFERED TO WHEELCHAIR VIA LIFT AND TRANSPORTED TO [facility] VIA [employer]. [employer] TO BRING BACK SLING AFTER TRANSPORT IS COMPLETE. NO OTHER ACUTE CHANGE IN ASSESSMENT PRIOR TO DC. CONDOM CATH REMOVED PRIOR TO DC AND IV REMOVED & INTACT.
== END 2023-04-24 17:11 | disposition home or self-care (01) | DRG 637 ==
LOC: ER 12:49 → MEDS 12:50 → PCU 13:30 → ER 13:30 → MEDS 20:18
PROVIDERS: Emergency Medicine; Internal Medicine; ADMIT Family Medicine
DX: E11.649 Type 2 diabetes mellitus with hypoglycemia without coma (principal); G92.8 Other toxic encephalopathy; E72.20 Disorder of urea cycle metabolism, unspecified; E87.20 Acidosis, unspecified; F03.911 Unspecified dementia, unspecified severity, with agitation; F03.93 Unspecified dementia, unspecified severity, with mood disturbance; N17.9 Acute kidney failure, unspecified; E86.0 Dehydration; I95.89 Other hypotension; F20.9 Schizophrenia, unspecified; E03.9 Hypothyroidism, unspecified; R77.8 Other specified abnormalities of plasma proteins; K21.9 Gastro-esophageal reflux disease without esophagitis; N40.0 Benign prostatic hyperplasia without lower urinary tract symptoms; I10 Essential (primary) hypertension; E11.42 Type 2 diabetes mellitus with diabetic polyneuropathy; E78.5 Hyperlipidemia, unspecified; Z88.5 Allergy status to narcotic agent; Z88.8 Allergy status to other drugs, medicaments and biological substances; Z79.1 Long term (current) use of non-steroidal anti-inflammatories (NSAID); Z79.4 Long term (current) use of insulin; Z79.890 Hormone replacement therapy; Z79.2 Long term (current) use of antibiotics; Z89.422 Acquired absence of other left toe(s); Z89.421 Acquired absence of other right toe(s); Z11.52 Encounter for screening for COVID-19; Z99.3 Dependence on wheelchair; Z78.1 Physical restraint status
CPT/HCPCS: 0241U; 36415; 51701; 70450; 71045; 80048; 80053; 80061; 80069; 80164; 81003; 82140; 82550; 82947; 83036; 83605; 83735; 83880; 84100; 84443; 84484; 85025; 85027; 85610; 85730; 93005; 93010; 96372; 97110; 97161; 97530; 99285-25; A9270; G0378; G0480; J1650; J7042; J7120

== ENCOUNTER 2023-06-19 14:29 | Inpatient (IN) | payer MEDICARE, OTHER ==
[~2023-06-19] VITALS: Ht 175.3 cm; Wt 106.6 kg
[~2023-06-19 14:29] MED LIST changes: +ALMACONE SUSPE355 ML PO; +ANTI PO; +DULCOLAX400 MG/5 M PO; +Fleet Enema132 ML PR; +GUAI600T33 PO; +KETO15TC TOP; +LOPE2C PO; +MIRALAX17 GM PO; +MOBIC15 MG PO; +NYAMYC15 G1 TOP; +ONGLYZA5 MG PO; +[UNRECOGNIZED DRUG - OTHER] PO
[2023-06-19 16:34] LABS: BASOPHILS ABSOLUTE AUTO 0.04 K/mm3 (0.00-0.23); BASOPHILS PERCENT AUTO 1 % (0-2); EOSINOPHILS ABSOLUTE AUTO 0.09 K/mm3 (0.00-0.68); EOSINOPHILS PERCENT AUTO 1 % (0-6); Hematocrit 40.6 % (37.0-53.0); Hemoglobin 13.8 g/dL (13.5-17.5); IMMATURE GRAN ABSOLUTE AUTO 0.06 K/mm3 (0.00-0.10); IMMATURE GRAN PERCENT AUTO 1 % (0-1); LYMPHOCYTES PERCENT AUTO 17 % (21-46); MONOCYTES ABSOLUTE AUTO 0.54 K/mm3 (0.16-1.47); MONOCYTES PERCENT AUTO 7 % (4-13); Mean Corpuscular HGB 31.6 pg (26.0-34.0); Mean Corpuscular Volume 93 fL (80-100); Mean Platelet Volume 10.4 fL (9.1-12.4); NEUTROPHILS ABSOLUTE AUTO 5.67 K/mm3 (1.96-9.15); NEUTROPHILS PERCENT AUTO 74 % (41-73); Platelet Count 168 K/mm3 (150-400); RDW Coefficient Variation 11.9 % (11.7-14.2); RDW Standard Deviation 40.5 fL (35.1-46.3); Red Blood Cell Count 4.37 M/mm3 (4.30-5.90)
[2023-06-19 17:09] LABS: Albumin, Blood 3.9 g/dL (3.4-5.0); Bilirubin, Total 0.6 mg/dL (0.1-1.0); Bun/Creatinine Ratio 19.2 (12.0-20.0); Calcium, Blood 8.8 mg/dL (8.5-10.1); Creatinine, Blood 0.88 mg/dL (0.60-1.20); Potassium, Blood 5.3 mmol/L (3.5-5.5); Total Protein, Blood 7.9 g/dL (6.4-8.2)
[2023-06-19] MEDS ORDERED: SAXA2.5T PO (17:09)
[2023-06-19 21:36] VITALS: BP 153/77
--- NOTE | 2023-06-19 22:52 | NUR ---
ARRIVAL PT ARRIVED AT 2119 VIA GURNEY FROM THE ER. TRASFERRED FROM [place] TO BED WITH A SLIDING SHEET. PT HAD 2L NC SATTING ABOVE 90%, LUNGS SOUNDED CLEAR BUT DIMINSHED IN THE BASES. NO DISTRESS NOTED, PT HAS HARSH PRODUCTIVE COUGH, LITTLE TO NO SPUTUM COMING UP. PT HAS DEMENTIA, NOT ABLE TO GIVE HX. NO SKIN ISSUES NOTED. PT TOOK PILLS CRUSHED IN APPLESAUCE, ABLE TO TAKE IN, COUGHING AFTER TAKING ALL PILLS. CALL LIGHT GIVEN AND GONE OVER WITH PT. BED ALARM ON FOR SAFETY. NO OTHER CONCERNS AT THIS TIME.
[2023-06-20 02:51] VITALS: BP 142/101
[2023-06-20 02:53] VITALS: BP 128/84
[2023-06-20 05:21] LABS: BASOPHILS ABSOLUTE AUTO 0.03 K/mm3 (0.00-0.23); BASOPHILS PERCENT AUTO 0 % (0-2); EOSINOPHILS ABSOLUTE AUTO 0.15 K/mm3 (0.00-0.68); EOSINOPHILS PERCENT AUTO 2 % (0-6); Hematocrit 33.1 % (37.0-53.0); Hemoglobin 11.2 g/dL (13.5-17.5); IMMATURE GRAN ABSOLUTE AUTO 0.02 K/mm3 (0.00-0.10); IMMATURE GRAN PERCENT AUTO 0 % (0-1); LYMPHOCYTES ABSOLUTE AUTO 1.97 K/mm3 (0.84-5.20); LYMPHOCYTES PERCENT AUTO 20 % (21-46); MONOCYTES ABSOLUTE AUTO 1.06 K/mm3 (0.16-1.47); MONOCYTES PERCENT AUTO 11 % (4-13); Mean Corpuscular HGB 31.2 pg (26.0-34.0); Mean Corpuscular HGB Conc 33.8 g/dL (31.5-36.5); Mean Corpuscular Volume 92 fL (80-100); Mean Platelet Volume 10.5 fL (9.1-12.4); NEUTROPHILS ABSOLUTE AUTO 6.68 K/mm3 (1.96-9.15); NEUTROPHILS PERCENT AUTO 67 % (41-73); Platelet Count 149 K/mm3 (150-400); RDW Standard Deviation 40.5 fL (35.1-46.3); Red Blood Cell Count 3.59 M/mm3 (4.30-5.90); White Blood Cell Count 9.91 K/mm3 (4.00-11.30)
--- NOTE | 2023-06-20 05:23 | NUR ---
SHIFT SUMMARY NO ACUTE CHANGES SINCE ARRIVAL TO UNIT. PT ABLE TO SLEEP. DENIES ANY PAIN. LUNGS SOUND CLEAR. TAKING PILLS CRUSHED IN APPLESUACE. NO OTHER CONCERNS AT THIS TIME. CALL LIGHT WITHIN REACH
[2023-06-20 05:45] LABS: Albumin, Blood 3.2 g/dL (3.4-5.0); Bilirubin, Total 0.5 mg/dL (0.1-1.0); Bun/Creatinine Ratio 22.5 (12.0-20.0); Calcium, Blood 8.5 mg/dL (8.5-10.1); Creatinine, Blood 0.89 mg/dL (0.60-1.20); Globulin, Blood 3.3 g/dL (2.2-4.0); Potassium, Blood 4.1 mmol/L (3.5-5.5); Total Protein, Blood 6.5 g/dL (6.4-8.2)
[2023-06-20 07:37] VITALS: BP 141/75
--- NOTE | 2023-06-20 09:50 | NUR ---
"Spiritual Care | Pt. request Pt. is resting in bed but responds when I enter the room. Pt. displays evidence of somnolence and confusion. Attempted a life reviw but Pt. was unable to respond. Pt. agreed to prayer. Prayed for Pt. This dental scheduling coordinator will remain available to Pt."
[2023-06-20 14:54] VITALS: BP 132/73
--- NOTE | 2023-06-20 18:30 | NUR ---
SHIFT SUMMARY PATIENT IS AOX1-2, ABLE TO ANSWER SIMPLE QUESTIONS, COOPERATIVE WITH CARE. 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 PATIENT IS INCONT. AND A TURN Q2. CLEAN ATTENDS IN PLACE. CURRENTLY ON RA SATS 93-95%. VSS. PLAN FOR DISCHARGE BACK TO [facility] IN THE AM. BED ALARM ON AND CALL LIGHT IN REACH.
[2023-06-20 19:44] VITALS: BP 172/89
[2023-06-21 02:42] VITALS: BP 165/86
--- NOTE | 2023-06-21 05:05 | NUR ---
SHIFT SUMMARY PT ABLE TO REST DURING THE NIGHT. DENIES ANY PAIN. CONT BIOX ON, SATTING ABOVE 94%. PT HAD INCONTINENT EPISODES. CLEAN ATTENDS IN PLACE. PLAN TO GO BACK TO [facility]. AWAITING RIDE TO BE SCHEDULED. NO OTHER CONERNS AT THIS TIME. CALL LIGHT WITHIN REACH
[2023-06-21 07:19] VITALS: BP 159/80
--- NOTE | 2023-06-21 10:49 | NUR ---
DISCHARGE IV TAKEN OUT INTACT, ALL DISCHARGE INSTRUCTIONS AND MEDICATION REC IN DISCHARGE FOLDER FOR FACILITY. CALL TO [facility] AND NOTIFIED OF PATIENT DISCHARGE HOME. PATIENT TAKEN BY RADHA DAWN VIA WHEELCHAIR.
== END 2023-06-21 10:41 | disposition home or self-care (01) | DRG 177 ==
LOC: ER 14:29 → SURS 18:05 → ERHOLD 18:05 → SURS 21:02
PROVIDERS: Emergency Medicine; Nurse Practitioner Acute Care; ADMIT Hospitalist
DX: J69.0 Pneumonitis due to inhalation of food and vomit (principal); J96.01 Acute respiratory failure with hypoxia; F02.818 Dementia in other diseases classified elsewhere, unspecified severity, with other behavioral disturbance; E87.1 Hypo-osmolality and hyponatremia; I10 Essential (primary) hypertension; F20.9 Schizophrenia, unspecified; E78.5 Hyperlipidemia, unspecified; E11.40 Type 2 diabetes mellitus with diabetic neuropathy, unspecified; E03.9 Hypothyroidism, unspecified; E86.0 Dehydration; N40.0 Benign prostatic hyperplasia without lower urinary tract symptoms; K21.9 Gastro-esophageal reflux disease without esophagitis; Z89.422 Acquired absence of other left toe(s); Z89.421 Acquired absence of other right toe(s); Z98.890 Other specified postprocedural states; F10.21 Alcohol dependence, in remission; Z88.8 Allergy status to other drugs, medicaments and biological substances; Z88.5 Allergy status to narcotic agent; Z79.84 Long term (current) use of oral hypoglycemic drugs; Z79.890 Hormone replacement therapy; Z79.899 Other long term (current) drug therapy
CPT/HCPCS: 36415; 71045; 71046; 80053; 82947; 83735; 85025; 92610; 94640; 94664; 94762; 99285-25; A9270; J1650; J7030

== ENCOUNTER 2023-07-09 13:32 | Emergency (ER) | payer MEDICARE, OTHER ==
[~2023-07-09] VITALS: Ht 177.8 cm; Wt 122.5 kg
[~2023-07-09 13:32] MED LIST changes: +SAXA2.5T PO
[2023-07-09 14:27] LABS: BASOPHILS ABSOLUTE AUTO 0.03 K/mm3 (0.00-0.23); BASOPHILS PERCENT AUTO 1 % (0-2); EOSINOPHILS PERCENT AUTO 2 % (0-6); Hematocrit 35.5 % (37.0-53.0); Hemoglobin 12.3 g/dL (13.5-17.5); IMMATURE GRAN ABSOLUTE AUTO 0.04 K/mm3 (0.00-0.10); IMMATURE GRAN PERCENT AUTO 1 % (0-1); LYMPHOCYTES ABSOLUTE AUTO 1.17 K/mm3 (0.84-5.20); LYMPHOCYTES PERCENT AUTO 20 % (21-46); MONOCYTES ABSOLUTE AUTO 0.97 K/mm3 (0.16-1.47); MONOCYTES PERCENT AUTO 17 % (4-13); Mean Corpuscular HGB 31.7 pg (26.0-34.0); Mean Corpuscular HGB Conc 34.6 g/dL (31.5-36.5); Mean Corpuscular Volume 92 fL (80-100); Mean Platelet Volume 11.4 fL (9.1-12.4); NEUTROPHILS ABSOLUTE AUTO 3.53 K/mm3 (1.96-9.15); NEUTROPHILS PERCENT AUTO 61 % (41-73); Platelet Count 130 K/mm3 (150-400); RDW Standard Deviation 40.4 fL (35.1-46.3); Red Blood Cell Count 3.88 M/mm3 (4.30-5.90); White Blood Cell Count 5.84 K/mm3 (4.00-11.30)
[2023-07-09 14:53] LABS: Albumin, Blood 3.5 g/dL (3.4-5.0); Bilirubin, Total 0.6 mg/dL (0.1-1.0); Bun/Creatinine Ratio 18.8 (12.0-20.0); Calcium, Blood 8.8 mg/dL (8.5-10.1); Creatinine, Blood 1.12 mg/dL (0.60-1.20); Globulin, Blood 3.5 g/dL (2.2-4.0); Potassium, Blood 3.9 mmol/L (3.5-5.5)
[2023-07-09 16:14] VITALS: BP 156/79
[2023-07-09 16:25] LABS: Influenza A Negative (NEGATIVE); Influenza B Negative (NEGATIVE)
[2023-07-09 16:26] LABS: SARS-Cov-2 (COVID-19) PCR, MMC POSITIVE (NEGATIVE)
[2023-07-09 16:37] LABS: Source, Urine Clean Catch
[2023-07-09 16:39] LABS: Appearance, Urine Clear (Clear); Bilirubin, Urine Neg (Neg); Blood, Urine 3+ (Neg); Color, Urine Yellow (P-Yellow); Glucose Qualitative, Urine Neg (Neg); Ketones, Urine Neg (Neg); Leukocyte Esterase, Urine Neg (Neg); Nitrite, Urine Neg (Neg); Protein, Urine Neg (Neg); Urobilinogen, Urine 2+ (Normal)
[2023-07-09 16:49] LABS: Bacteria Rare /hpf; White Blood Cells, Urine 0-2 /hpf (0-5)
[2023-07-09 16:50] LABS: Hyaline Casts 0-2 /lpf (0-2); Renal Epithelial Rare /hpf (0-Rare); Squamous Epithelial Cells Few /hpf (Few)
[2023-07-09 16:52] LABS: U Amphetamine Screen Not Detected; U Barbituate Screen Not Detected; U Benzodiazapine Screen Not Detected; U Buprenorphine Screen Not Detected; U Cannabinoids Screen Not Detected; U Cocaine Screen Not Detected; U Methadone Screen Not Detected; U Methamphetamine Screen Not Detected; U Opiates Screen Not Detected; U Oxycodone Screen Not Detected; U Phencyclidine Screen Not Detected
== END 2023-07-09 19:51 | disposition home or self-care (01) ==
LOC: ER 13:32
PROVIDERS: Emergency Medicine
DX: U07.1 COVID-19 (principal); F03.911 Unspecified dementia, unspecified severity, with agitation; I10 Essential (primary) hypertension; E11.40 Type 2 diabetes mellitus with diabetic neuropathy, unspecified; E78.5 Hyperlipidemia, unspecified; E03.9 Hypothyroidism, unspecified; Z88.5 Allergy status to narcotic agent; Z88.8 Allergy status to other drugs, medicaments and biological substances; Z79.899 Other long term (current) drug therapy; Z79.84 Long term (current) use of oral hypoglycemic drugs; Z79.890 Hormone replacement therapy
CPT/HCPCS: 71045; 80053; 81001; 82140; 85025; 87804; 87807; 93005; 93010; 96360; 99285-25; J1200; J7030; U0002